=== PATIENT | male | born 1990 | race Caucasian/White ===

== ENCOUNTER 2019-04-04 16:56 | Emergency (ER) | payer MEDICARE, MEDICAID, SELFPAY ==
[2019-04-04 16:55] VITALS: BP 142/84; PULSE 87; RESP 16; TEMP 37.1; O2SAT 98; BMI 19.2
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
--- NOTE | 2019-04-04 17:27 | PC.NURSE ---
Patient at bedise with child.
[2019-04-04 17:37] LABS: UR Morphine/Opiate cutoff 300 Negative (Negative); Ur Creatinine Normal (Normal); Ur Specific Gravity Normal (Normal); Urine Amphetamines Negative (Negative); Urine Barbiturates Negative (Negative); Urine Benzodiazepines Negative (Negative); Urine Cocaine Negative (Negative); Urine MDMA Negative (Negative); Urine Methadone Negative (Negative); Urine Methamphetamines Negative (Negative); Urine Oxycodone Negative (Negative); Urine Phencyclidine Negative (Negative); Urine Tetrahydrocannabinol Positive (Negative); Urine Tricyclic Antidepressant Negative (Negative); Urine pH Normal (Normal)
[2019-04-04 17:39] LABS: Add Manual Diff / Slide Review NO; Basophils Absolute Auto 100 /uL (0-100); Basophils Percent Auto 0.7 % (0-2); Eosinophils Absolute Auto 200 /uL (0-450); Eosinophils Percent Auto 2.1 % (2-4); Hematocrit 39.7 % (41-53); Hemoglobin 13.3 g/dL (13.5-17.5); Lymphocytes Absolute Auto 2100 /uL (1100-4500); Lymphocytes Percent Auto 27.1 % (25-40); Mean Corpuscular HGB Conc 33.5 % (30-36); Mean Corpuscular Hemoglobin 30.6 PG (26-34); Mean Corpuscular Volume 91.2 fL (80-100); Monocytes Absolute Auto 600 /uL (0-900); Monocytes Percent Auto 8.2 % (3-14); Neutrophils Absolute Auto 4900 /uL (1500-7000); Neutrophils Percent Auto 61.9 % (50-75); Platelet Count 253 X10^3/uL (150-400); Red Blood Cell Count 4.35 X10^6/uL (4.5-5.9); Red Cell Distribution Width 13.6 % (11.6-14.8); White Blood Cell Count 7.9 X10^3/uL (4.5-11.0)
[2019-04-04 17:42] LABS: Appearance Urine UA CLEAR; Bacteria Urine None Seen; Bilirubin Urine UA NEGATIVE (NEGATIVE); Color Urine UA YELLOW; Glucose Urine UA 2+ g/dL (Negative); Ketones Urine UA 1+ (NEGATIVE); Leukocyte Esterase Urine UA NEGATIVE (NEGATIVE); Nitrite Urine UA NEGATIVE (Negative); Occult Blood Urine UA 1+ (Negative); Protein Urine UA 2+ (Negative); Specific Gravity Urine UA 1.015 (1.000-1.035); Urobilinogen Urine UA 0.2 E.U./dL (0.2); WBC Urine None Seen (0-5/HPF)
[2019-04-04 17:48] LABS: RBC Urine 5-10/HPF (0-5/HPF)
[2019-04-04 17:49] LABS: Amorphous Sediment Urine 1+; Culture Indicated Urine Cult Not Indicated
[2019-04-04 17:53] LABS: Acetaminophen < 10 ug/mL (10-30); Alanine Aminotransferase 14 IU/L (<50); Albumin 4.6 g/dL (3.5-5.0); Albumin Globulin Ratio 1.8 (1.0-2.8); Alkaline Phosphatase 70 U/L (38-126); Aspartate Aminotransferase 22 IU/L (17-59); BUN Creatinine Ratio 14.5 (6-22); Bilirubin Total 2.6 mg/dL (0.2-1.3); Blood Urea Nitrogen 16 mg/dL (9-20); Calcium 9.4 mg/dL (8.4-10.2); Carbon Dioxide 27 mmol/L (22-32); Chloride 98 mmol/L (98-107); Estimated Glomerular Filt Rate > 60.0 mL/min (>60); Ethanol (ETOH) < 10 mg/dL; Globulin 2.5 g/dL (1.7-4.1); Glucose 412 mg/dL (70-100); HEMOLYSIS < 15 (0-50); Potassium 5.1 mmol/L (3.4-5.1); Salicylate < 1.0 mg/dL (<20); Sodium 136 mmol/L (137-145); Total Protein 7.1 g/dL (6.3-8.2)
[2019-04-04 18:23] LABS: Thyroid Stimulating Hormone 2.42 uIU/mL (0.47-4.68)
--- NOTE | 2019-04-04 18:26 | CM.SWNOTE ---
EMR reviewed: SW consult Requested on a 28 yr old male who came in by police for SI/Attempt. Patients contacted police to report that the patient had taken a handful of medication (trazodone) prescribed for the dog. Patient stated that he spit them out right after he took them. CM/RN asked patient what happened prior to taking the medication. patient stated I was crying all day and my was making fun of me so we were fighting. CM/RN asked why the patient was crying? patient stated he felt like his life was falling apart. Patient stated he was on disability for Type 1 diabetes (which is currently not well controlled), Kidney Disease and Gastroparesis. Patient was brought into a hospital by police last week in [place] for a suicidal threat he made to his . stating I am going to cut my throat while holding a knife. Patient stated he then dropped the knife in the sink and went outside to smoke when police showed up and brought him into the hospital involuntarily. Patient lives in [facility] in [place] with his and 17month old daughter and came here on to see family and attend a , Patient stated he forgot his sertraline and Buspar at home. Patient stated he was prescribed the medication about a month ago but hasn't been taking them regularly. Patient currently doesn't have a counselor or a psychiatrist but does see a PCP. Dr. Palomares at [facility] family medicine in [place] who according to the patient has been managing his Anxiety and depression. Patient stated he uses [place] regularly and smoke at least a pack a day. Patient denies any other illicit drug usage. CM asked patient if he was currently feeling suicidal patient stated he doesn't feel suicidal he just reacts when he feels sad. CM asked if patient had a plan for committing suicide? patient stated he doesn't have a firm plan he just reacts in the moment when he is emotional and feeling depressed. patient then stated that if he wanted to commit suicide right now he could by banging his head repeatedly on the ground. Patients orientation at the time of CM/RN meeting was flat and angry. Patient mood was sad and depressed with clear slowed speech. patient insight and memory was present and intact. CM asked if patient would be open to going somewhere to get help with his anxiety and depression and work on managing his medications. Patient stated he doesn't want to go anywhere he just wants to go home. Plan: CM/RN talked with the patients Nurse and ED provider and explained conversation I had with patient. ED provider stated that since patient is not currently suicidal she planned to D/C patient home. time spent 90mins Lauren Benavides RN
--- NOTE | 2019-04-04 18:36 | PC.NURSE ---
Patient states I just wanted her to leave me the fuck alone and stop saying things that are going to hurt my feelings. I am tired of being talked down to. I am a grown ass 28 year old man who is coherent and can make my own fucking decisions Patient denies SI, denies a plan I just want to go home patient does not want voluntary hospitalization. Patient states he has an appt on and knows what he needs to do.
[2019-04-04 18:42] VITALS: BP 149/91; PULSE 67; RESP 16; O2SAT 99
== END 2019-04-04 19:10 | disposition home or self-care (01) ==
PROVIDERS: Emergency Provider Nurse Practitioner Family
DX: R45.851 Suicidal ideations (principal); F32.9 Major depressive disorder, single episode, unspecified; R79.89 Other specified abnormal findings of blood chemistry; E10.9 Type 1 diabetes mellitus without complications; Z79.4 Long term (current) use of insulin
CPT/HCPCS: 36415; 80053; 80305; 80320; 80329; 81001; 82962; 84443; 85025; 99283; G0480